=== PATIENT | male | born 1985 | race Caucasian/White ===

== ENCOUNTER 2016-03-18 22:58 | Emergency (ER) | payer OTHER ==
[~2016-03-18] VITALS: Ht 180.3 cm; Wt 67.4 kg
[~2016-03-18 22:58] MED LIST: KEFLEX500 MG PO; NAPROSYN500 MG PO; NOHOMEMEDS; PERCOCET 5/31 TABLET PO; QUETIAPINE FUM100 MG PO; REGLAN10 MG PO; ZOFRAN ODT8 MG PO
[2016-03-18 23:22] VITALS: BP 134/88
[2016-03-19 00:01] LABS: HEMATOCRIT 42.5 % (38.0-50.0); MCH 30.5 PG (29.0-34.0); MCHC 35.8 G/DL (30.0-36.0); MCV 85.3 FL (86-99); MEAN PLAT.VOLUME 9.5 uM^3 (9.0-12.4); PLATELET COUNT 359 K/uL (156-360); RBC DIS.WIDTH-CV 12.8 % (11.8-14.6); RBC DIS.WIDTH-SD 39.6 % (39-53); RED BLOOD COUNT 4.98 M/uL (4.00-5.50); WHITE BLOOD COUNT 10.1 K/uL (4.1-10.2)
[2016-03-19 00:06] LABS: ADD MEDTOX COMMENT Y; AMPHETAMINE NEGATIVE (500 ng/mL); BARBITURATES NEGATIVE (200 ng/mL); BENZODIAZEPINES NEGATIVE (150 ng/mL); COCAINE NEGATIVE (150 ng/mL); INTERNAL CONTROLS VALID? YES; METHADONE NEGATIVE (200 ng/mL); METHAMPHETAMINE NEGATIVE (500 ng/mL); OPIATES (MORPHINE) NEGATIVE (100 ng/mL); OXYCODONE NEGATIVE (100 ng/mL); PHENCYCLIDINE NEGATIVE (25 ng/mL); PROPOXYPHENE NEGATIVE (300 ng/mL); THC CANNABINOIDS PRESUMPTIVE POSITIVE (50 ng/mL); TRICYCLIC ANTIDEPRESSANTS NEGATIVE (300 ng/mL)
[2016-03-19 00:14] LABS: CHLORIDE 102 mEq/L (99-109); POTASSIUM 3.9 mEq/L (3.7-5.4); SODIUM 139 mEq/L (136-147)
[2016-03-19 00:15] LABS: GLUCOSE 99 mg/dL (70-99)
[2016-03-19 00:17] LABS: ANION GAP 9 MEQ/L (2-14)
[2016-03-19 00:19] LABS: GFR ESTIMATE (CALCULATED) > 59 mL/min/; SERUM ETHYL ALCOHOL < 10 mg/dL
[2016-03-19 00:20] LABS: UREA NITROGEN (BUN) 11 mg/dL (9-23)
== END 2016-03-19 08:13 | disposition left against medical advice (07) ==
LOC: EME 22:58
DX: F22 Delusional disorders (principal); K08.89 Other specified disorders of teeth and supporting structures; R45.851 Suicidal ideations; Z53.21 Procedure and treatment not carried out due to patient leaving prior to being seen by health care provider
CPT/HCPCS: 80048; 84999; 85027; G0480

== ENCOUNTER 2016-05-10 10:17 | Emergency (ER) | payer OTHER ==
[~2016-05-10] VITALS: Ht 180.3 cm; Wt 67.2 kg
[2016-05-10 11:53] VITALS: BP 118/86
== END 2016-05-10 11:54 | disposition home or self-care (01) ==
LOC: EME 10:17
DX: T40.1X1A Poisoning by heroin, accidental (unintentional), initial encounter (principal); R00.0 Tachycardia, unspecified; F17.200 Nicotine dependence, unspecified, uncomplicated
CPT/HCPCS: 99281; 99285

== ENCOUNTER 2016-08-08 07:11 | Emergency (ER) | payer OTHER ==
[~2016-08-08] VITALS: Ht 180.3 cm; Wt 67.9 kg
[2016-08-08 07:12] VITALS: BP 122/90
[2016-08-08] MEDS ORDERED: CLINDAMYCIN HC300 MG PO (07:48)
[2016-08-08] MEDS ORDERED: PERCOCET 5/31 TABLET PO (07:48)
== END 2016-08-08 08:02 | disposition home or self-care (01) ==
LOC: EME 07:11
PROC: 0W953ZZ Drainage of Lower Jaw, Percutaneous Approach (ICD-10-PCS; principal; 2016-08-08)
DX: K04.7 Periapical abscess without sinus (principal); K02.9 Dental caries, unspecified; F17.200 Nicotine dependence, unspecified, uncomplicated
CPT/HCPCS: 99281; 99283

== ENCOUNTER 2017-02-26 13:55 | Emergency (ER) | payer OTHER ==
[~2017-02-26] VITALS: Ht 180.3 cm; Wt 71.8 kg
[~2017-02-26 13:55] MED LIST changes: +CLINDAMYCIN HC300 MG PO
[2017-02-26 14:26] VITALS: BP 112/40
[2017-02-26] MEDS ORDERED: PEN-VEE K,VEET500 MG PO (16:16)
== END 2017-02-26 16:32 | disposition home or self-care (01) ==
LOC: EME 13:55
DX: K02.9 Dental caries, unspecified (principal)
CPT/HCPCS: 99281; 99284

== ENCOUNTER 2017-03-27 13:26 | Emergency (ER) | payer SELFPAY ==
[~2017-03-27] VITALS: Ht 177.8 cm; Wt 65.7 kg
[~2017-03-27 13:26] MED LIST changes: +PEN-VEE K,VEET500 MG PO
[2017-03-27 13:57] VITALS: BP 109/65
== END 2017-03-27 13:56 | disposition home or self-care (01) ==
LOC: EME 13:26
DX: T40.1X1A Poisoning by heroin, accidental (unintentional), initial encounter (principal); F12.90 Cannabis use, unspecified, uncomplicated; F32.9 Major depressive disorder, single episode, unspecified
CPT/HCPCS: 99281; 99284; J2310

== ENCOUNTER 2017-08-16 21:52 | Emergency (ER) | payer OTHER ==
[~2017-08-16] VITALS: Ht 180.3 cm; Wt 65.6 kg
[2017-08-16 22:19] LABS: HEMATOCRIT 33.8 % (38.0-50.0); HEMOGLOBIN 11.9 G/DL (12.5-16.6); MCH 31.2 PG (29.0-34.0); MCHC 35.2 G/DL (30.0-36.0); MCV 88.7 FL (86-99); PLATELET COUNT 359 K/uL (156-360); RBC DIS.WIDTH-SD 45.6 % (39-53); RED BLOOD COUNT 3.81 M/uL (4.00-5.50); WHITE BLOOD COUNT 7.7 K/uL (4.1-10.2)
[2017-08-16 22:30] LABS: CHLORIDE 101 mEq/L (99-109); POTASSIUM 3.6 mEq/L (3.7-5.4); SODIUM 138 mEq/L (136-147)
[2017-08-16 22:32] LABS: GLUCOSE 99 mg/dL (70-99)
[2017-08-16 22:35] LABS: CREATININE 0.8 mg/dL (0.6-1.3); GFR ESTIMATE (CALCULATED) > 59 mL/min/ (58.99-99999)
[2017-08-16 22:36] LABS: UREA NITROGEN (BUN) 9 mg/dL (9-23)
[2017-08-16 22:39] LABS: TROP-I INTERPRETATION NEGATIVE; TROPONIN-I < 0.01 ng/mL (0.0-0.30)
[2017-08-16 23:43] LABS: D-DIMER ELISA < 150.00 ng/mLDDU (<230)
[2017-08-17 00:52] LABS: TROP-I INTERPRETATION NEGATIVE; TROPONIN-I < 0.01 ng/mL (0.0-0.30)
[2017-08-17 01:02] VITALS: BP 134/77
== END 2017-08-17 01:03 | disposition home or self-care (01) ==
LOC: EME 21:52
PROVIDERS: Physician Assistant
DX: R07.9 Chest pain, unspecified (principal); F41.9 Anxiety disorder, unspecified; F32.9 Major depressive disorder, single episode, unspecified; F17.200 Nicotine dependence, unspecified, uncomplicated
CPT/HCPCS: 71046; 80048; 84484; 85027; 85379; 93005; 99281; 99284